=== PATIENT | female | born 1995 | race Caucasian/White ===

== ENCOUNTER 2017-02-08 23:13 | Emergency (ER) | payer BC, OTHER ==
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
[2017-02-09] MEDS ORDERED: EMTRICITABINE/TENOFOVIR 200MG/300MG TAB PO SCH
[2017-02-09] MEDS ORDERED: RALTEGRAVIR 400 MG TAB PO SCH
[2017-02-09] MEDS ORDERED: metroNIDAZOLE 500 MG TAB PO SCH
[2017-02-09] MEDS ORDERED: CEFTRIAXONE IM 350 MG/ML SYRINGE IM ONE ×2 (00:19→02:30)
[2017-02-09] MEDS ORDERED: ONDANSETRON DISINTEGRATING 4 MG TAB PO ONE ×2 (00:19→02:30)
[2017-02-09] MEDS ORDERED: ULIPRISTAL ACETATE 30 MG TAB PO ONE ×2 (00:19→02:30)
[2017-02-09] MEDS ORDERED: AZITHROMYCIN 250 MG TAB PO ONE ×3 (00:19→02:30)
[2017-02-09] MEDS ORDERED: IBUPROFEN 600 MG TAB PO ONE (02:30)
[2017-02-09] MEDS ORDERED: RALTEGRAVIR 400 MG TAB PO ONE (02:32)
[2017-02-09] MEDS ORDERED: EMTRICITABINE/TENOFOVIR 200MG/300MG TAB PO ONE (02:32)
[2017-02-09 04:43] LABS: % IMMATURE GRANULYOCYTES 0.2 % (0.0-1.1); ABSOLUTE IMMATURE GRANULOCYTES 0.02 10^3/uL (0.00-0.10); ADD DIFF? NO; ADD MORPH? NO; ADD SCAN? NO; ATYPICAL LYMPHOCYTE FLAG 10 (0-99); FRAGMENT RBC FLAG 20 (0-99); HEMATOCRIT 38.7 % (38.0-47.0); HEMOGLOBIN 12.4 g/dL (12.6-16.3); LEFT SHIFT FLG 0 (0-99); LIPEMIA HEMOLYSIS FLAG 80 (0-99); MEAN CELL HEMOGLOBIN 24.2 pg (27.9-34.1); MEAN CELL VOLUME 75.4 fL (81.5-99.8); MEAN PLATELET VOLUME 10.6 fL (8.7-11.7); PLATELET CLUMPS FLAG 0 (0-99); PLATELET COUNT 261 10^3/uL (150-400); RED BLOOD CELL COUNT 5.13 10^6/uL (4.18-5.33); RED CELL DISTRIBUTION WIDTH 17.5 % (11.5-15.2)
[2017-02-09 04:50] VITALS: BP 148/103; PULSE 104; RESP 14; TEMP 97.7; O2SAT 99
[2017-02-09 05:00] LABS: ALANINE AMINOTRANSFERASE 35 IU/L (9-52); ALBUMIN 4.6 g/dL (3.5-5.0); ALKALINE PHOSPHATASE 65 IU/L (38-126); ANION GAP 19 mEq/L (8-16); ASPARTATE AMINOTRANSFERASE 34 IU/L (14-46); BILIRUBIN-UNCONJUGATED 0.1 mg/dL (0.0-1.1); CALCIUM 9.2 mg/dL (8.5-10.4); CARBON DIOXIDE 21 mEq/l (22-31); CHLORIDE 106 mEq/L (97-110); CREATININE 0.9 mg/dL (0.6-1.0); GLOMERULAR FILTRATION RATE > 60; GLUCOSE 90 mg/dL (70-100); SODIUM 146 mEq/L (134-144); TOTAL PROTEIN 7.2 g/dL (6.3-8.2)
[2017-02-09 05:04] LABS: BILIRUBIN,TOTAL 0.1 mg/dL (0.1-1.4)
[2017-02-10 02:39] LABS: HEPATITIS B SURFACE ANTIBODY NEGATIVE (NEGATIVE)
[2017-02-10 17:22] LABS: BHCG-QUALITATIVE NEGATIVE
== END 2017-02-09 03:05 | disposition home or self-care (01) ==
LOC: EEVIPCON 23:13
DX: T74.21XA Adult sexual abuse, confirmed, initial encounter (principal); Y07.9 Unspecified perpetrator of maltreatment and neglect
CPT/HCPCS: 86704-90; 86705-90; G0472; J0696